=== PATIENT | male | born 2000 | race Caucasian/White ===

== ENCOUNTER 2024-08-04 16:37 | Emergency (ER) | payer BC ==
[2024-08-04] MEDS: Cyclobenzaprine 5 MG Tab PO STA (18:27)
== END 2024-08-04 18:54 | disposition home or self-care (01) ==
LOC: MW.ED 16:37
DX: M25.511 Pain in right shoulder (principal); F17.210 Nicotine dependence, cigarettes, uncomplicated; Z75.8 Other problems related to medical facilities and other health care; Z88.0 Allergy status to penicillin
CPT/HCPCS: 73030; 99283; A9270